=== PATIENT | male | born 1985 | race African-American/Black ===

== ENCOUNTER 2022-05-20 11:05 | Emergency (ER) | payer MEDICAID ==
[~2022-05-20] VITALS: Ht 188 cm; Wt 104.3 kg
[2022-05-20 11:29] VITALS: BP_SYST 129
--- NOTE | 2022-05-20 11:39 | NUR ---
Patient to ER bed 5 to gown for evaluation. Side rails up. Report given to LAUREN.
--- NOTE | 2022-05-20 11:45 | NUR ---
Assumed care of patient who came from home c/o right ear pain and right ankle pain. Patient is A&Ox4, calm and cooperative. No signs of acute distress. Will continue to monitor and provide care as ordered.
--- NOTE | 2022-05-20 12:15 | NUR ---
ER Dr. Caballero at bedside examining patient.
[2022-05-20] MEDS ORDERED: PSEU120T57 PO (12:32)
[2022-05-20] MEDS ORDERED: NAPR-690 PO (12:32)
--- NOTE | 2022-05-20 12:53 | NUR ---
Patient given written and verbal discharge instructions and verbalizes understanding. ER MD discussed with patient the results and treatment provided. Patient in stable condition. ID arm band removed. Rx of Naproxen and Pseudoephedrine given. Patient educated on pain management and to follow up with PMD. Pain Scale 3/10. Opportunity for questions provided and answered. Medication side effect fact sheet provided.
== END 2022-05-20 12:55 | disposition home or self-care (01) ==
LOC: SED 11:05
DX: H92.01 Otalgia, right ear (principal); M25.571 Pain in right ankle and joints of right foot
CPT/HCPCS: 99283